=== PATIENT | female | born 1925 | race Caucasian/White ===

== ENCOUNTER 2016-08-10 16:39 | Emergency (ER) | payer MEDICARE ==
[2016-08-10 17:02] LABS: BASOPHILS 0.3 % (0.0-2.0); EOSINOPHILS 1.7 % (0.0-6.0); EOSINOPHILS# 0.2 X 10^3uL (0.0-0.4); HEMATOCRIT 47.2 % (36.0-48.0); HEMOGLOBIN 15.9 g/dL (12.0-16.0); LYMPHOCYTES 6.2 % (20.0-40.0); LYMPHOCYTES# 0.6 X 10^3uL (0.8-3.8); MEAN CELL VOLUME 94.8 fL (80.0-100.0); MEAN CORPUS. HGB CONCENTRATION 33.7 g/dL (32.0-36.0); MEAN PLATELET VOLUME 8.7 fL (7.4-10.4); MONOCYTES 3.2 % (2.0-10.0); MONOCYTES# 0.3 X 10^3uL (0.2-1.0); NEUTROPHILS 88.6 % (54.0-75.0); PLATELET COUNT 253 X 10^3uL (130-440); RED BLOOD COUNT 4.98 X 10^6uL (4.20-6.10); RED CELL DISTRIBUTION WIDTH 13.2 % (11.5-14.5); WHITE BLOOD COUNT 10.1 X 10^3uL (3.9-10.7)
[2016-08-10] MEDS ORDERED: ACETAMINOPHEN 325 MG TABLET PO ONE (17:02)
[2016-08-10] MEDS ORDERED: NORMAL SALINE 500 ML IV ONE ×2 (17:02→17:26)
[2016-08-10 17:10] LABS: BLOOD UREA NITROGEN 21 mg/dL (7-17); CALCIUM 9.9 mg/dL (8.4-10.2); CHLORIDE 100 mmol/L (98-107); GLUCOSE 97 mg/dL (70-100); POTASSIUM 4.2 mmol/L (3.5-5.1); SODIUM 134 mmol/L (137-145)
[2016-08-10 17:19] LABS: INFLUENZA A/B INF A & B NEGATIVE
[2016-08-10] MEDS ORDERED: KETOROLAC TROMETHAMINE 30 MG/ML VIAL ONE (17:26)
--- NOTE | 2016-08-10 18:31 | ER PHYSICIAN DOCUMENTATION ---
Physician Documentation [facility] Name:Florencia Fritz Age:89 yrs Sex:Female :1925 Arrival Date:08/10/2016 Time:16:39 Bed3 Private MD:Maxwell Severino ED, Scott Disposition: 08/10/16 18:04 Discharged to Home/Self Care. Impression: Dehydration, Viral Illness, Chronic Neck Pain. - Condition is Fair. - Discharge Instructions: DEHYDRATION (6y-Adult), VIRAL SYNDROME (Adult), BACK AND NECK PAIN, General. - Medical Reconciliation form form. - Follow up: Maxwell Severino MD; When: As needed; Reason: Worsening of condition, Recheck today's complaints, Continuance of care. - Problem is new. - Symptoms have improved. HPI: 08/10 18:05 This 89 yrs old Female presents to ER via EMS with complaints of Neck Problem.sc 18:05 The patient or guardian complains of pain, that is chronic. The symptoms are located sc diffusely. Onset: The symptom(s)/episode began/occurred at an unknown time. and became worse yesterday. Context: weak and nausea and warm x 2 days, decreased po, worsening chronic pain in neck head back and limbs. Associated signs and symptoms: Pertinent positives: vomiting. The patient has experienced similar episodes in the past, chronically. Historical: - Allergies: Cymbalta; Erythromycin; Keflex; Macrobid; Sulfa (Sulfonamide Antibiotics); Tetracycline; Septra; - Home Meds: 1. Lyrica Oral 3 times per day 2. Synthroid Oral once daily 3. phenergan - PMHx: HYPOTHYROIDISM; CRF; DDD; CHRONIC PAIN; GERD; incisional hernia ; - Tetanus: unable to assess. - Ebola Screening: : Patient denies exposure to infectious person. Patient denies travel to an Ebola-affected area in the 21 days before illness onset. . - Immunization history: Flu Vaccine < 1 year. - Social history: Smoking status: Patient states was never smoker of tobacco. Patient/guardian denies using alcohol, marijuana. ROS: 18:06 Eyes: Negative for injury, pain, redness, and discharge. sc ENT: Negative for injury, pain, and discharge. Cardiovascular: Negative for chest pain, palpitations, and edema. Respiratory: Negative for shortness of breath, cough, wheezing, and pleuritic chest pain. Abdomen/GI: Negative for abdominal pain, nausea, vomiting, diarrhea, and constipation. Skin: Negative for injury, rash, and discoloration. 18:06 Neuro: Negative for headache, weakness, numbness, tingling, and seizure. sc 18:06 Constitutional: Positive for body aches, fatigue, chronic pain. 18:06 Neck: Positive for pain at rest. Exam: Head/Face: Normocephalic, atraumatic. ENT: Nares patent. No nasal discharge, no septal abnormalities noted. Tympanic membranes are normal and external auditory canals are clear. Oropharynx with no redness, swelling, or masses, exudates, or evidence of obstruction, uvula midline. Mucous membranes moist. Chest/axilla: Normal chest wall appearance and motion. Nontender with no deformity. No lesions are appreciated. Cardiovascular: Regular rate and rhythm with a normal S1 and S2. No gallops, murmurs, or rubs. Normal PMI, no JVD. No pulse deficits. Respiratory: Lungs have equal breath sounds bilaterally, clear to auscultation and percussion. No rales, rhonchi or wheezes noted. No increased work of breathing, no retractions or nasal flaring. Abdomen/GI: Soft, non-tender, with normal bowel sounds. No distension or tympany. No guarding or rebound. No evidence of tenderness throughout. Skin: Warm, dry with normal turgor. Normal color with no rashes, no lesions, and no evidence of cellulitis. 18:07 Neuro: Awake and alert, GCS 15, oriented to person, place, time, and situation. in Cranial nerves II-XII grossly intact. Motor strength 5/5 in all extremities. Sensory grossly intact. Cerebellar exam normal. Normal gait. 18:07 Constitutional: The patient appears frail, lethargic. 18:07 Neck: External neck: tenderness, that is mild, diffuse neck back head and limbs pain. 18:09 Neuro: Motor: is normal, moves all fours, Sensation: no obvious gross deficits, Gait: sc appropriate for age, Deep tendon reflexes are 1 (trace) + in the right patellar and left patellar, Babinski testing is normal. 18:09 Neck: C-spine: Nexus Criteria: Nexus criteria: no cervical midline tenderness, patient sc is not intoxicated, mental status is normal, no focal/neurologic deficits, and no painful distracting injuries are present, ROM/movement: is normal. 18:09 ENT: TM's: are normal, Nose: is normal. sc 18:10 Neck: C-spine: vertebral tenderness, is not appreciated. in Vital Signs: 16:40 BP 134 / 77; Pulse 114; Temp 99.1; Pulse Ox 94% on R/A; Pain 10/10; st 17:33 Temp 97.7; st 17:49 Pain 8/10; st 18:29 BP 133 / 63; Pulse 86; Resp 20; Temp 98.8; Pulse Ox 96% on R/A; Pain 2/10; lb [place] Coma Score: 18:09 Eye Response: spontaneous(4). Verbal Response: oriented(5). Motor Response: obeys sc commands(6). Total: 15. MDM: 17:04 Patient medically screened. in 18:08 Differential diagnosis: arthritis, cervical strain. Data reviewed: vital signs, nurses sc notes, lab test result(s), and as a result, I will discharge patient, administer IV fluids. Counseling: I had a detailed discussion with the patient and/or guardian regarding: the historical points, exam findings, and any diagnostic results supporting the discharge/admit diagnosis, lab results, the need for outpatient follow up, with the patient's primary care provider, to return to the emergency department if symptoms worsen or persist or if there are any questions or concerns that arise at home. Medication response: The patient's symptoms have improved. 18:08 ED course: Feels back to baseline after ivf.. in 08/10 17:14 Order name: BASIC METABOLIC PANEL EDKS 08/10 17:15 Interpretation: Abnormal: SODIUM 134; BLOOD UREA NITROGEN 21. in / 17:15 Order name: CBC AUTO DIF, MDIF/RMOR IF IND; Complete Time: 17:52 EDKS 08/10 17:52 Interpretation: Normal. in 08/10 17:19 Order name: INFLUENZA A/B; Complete Time: 17:52 EDKS 08/10 17:52 Interpretation: Normal. in Dispensed Medications: 16:54 Drug: NS 0.9% 500 ml; Route: IV; Rate: bolus; Site: right antecubital; st 17:22 Follow up: IV Status: Completed infusion; IV Intake: 500ml st 16:54 Drug: Acetaminophen 975 mg; Route: PO; st 17:33 Follow up: Response: fever comming down. st 17:22 Drug: Toradol 30 mg; Route: IVP; Site: right antecubital; st 17:49 Follow up: Response: Pain is decreased st 17:22 Drug: NS 0.9% 500 ml; Route: IV; Rate: bolus; Site: right antecubital; 17:49 Follow up: IV Status: Completed infusion; IV Intake: 500ml Point of Care Testing: Urine Dip: 17:27 pH: 5.0; ; Specific [place]: 1.025; Ketones: Trace; Glucose: Negative; Protein: st Negative; Leukocytes: Negative; Nitrite: Negative ; Blood: Negative; Bilirubin: Negative ; Urobilinogen: Normal Signatures: Lucy Gonzalez RN RN st Chew, Scott, MD MD sc Bollock, Lynda lb
--- NOTE | 2016-08-10 18:31 | ER NURSING DOCUMENTATION ---
Nurse's Notes [facility] Name:Florencia Fritz Age:89 yrs Sex:Female :1925 Arrival Date:08/10/2016 Time:16:39 Bed3 Private MD:Maxwell Severino Diagnosis:Dehydration;Viral Illness;Chronic Neck Pain Presentation: 08/10 16:40 Presenting complaint: Patient states: pt states she has a headache and feels weak. EMS st states: EMS states that pt has been feeing increasingly bad today. with body aches and some nausea this am that has continued and she has had increased weakness. Transition of care: Home. Care prior to arrival: IV initiated. gauge and site 20 G right AC Glucose check. 101. 16:40 Method Of Arrival: EMS: 410 st 16:46 Acuity: ERIKA 3 st 16:46 Notified ED Physician of Dr. Díaz notified. st Triage Assessment: 16:40 General: Appears uncomfortable, Behavior is cooperative. Pain: Complains of pain in st headache and body ahces and chronich pain in her legs. Pain currently is 10 out of 10 on a pain scale. Quality of pain is described as aching. Neuro: No deficits noted. Cardiovascular: tachy. Respiratory: Airway is patent Respiratory effort is even, unlabored, Respiratory pattern is regular, symmetrical, Reports cough that is non-productive. Respiratory: Breath sounds are clear bilaterally. GI: Reports nausea, vomiting, pt has some nausea normally but this was worst. Derm: Skin temperature is hot. 17:07 Musculoskeletal: pt has significant peripheral neuropathy with pain on any touch. st Historical: - Allergies: Cymbalta; Erythromycin; Keflex; Macrobid; Sulfa (Sulfonamide Antibiotics); Tetracycline; Septra; - Home Meds: 1. Lyrica Oral 3 times per day 2. Synthroid Oral once daily 3. phenergan - PMHx: HYPOTHYROIDISM; CRF; DDD; CHRONIC PAIN; GERD; incisional hernia ; - Tetanus: unable to assess. - Ebola Screening: : Patient denies exposure to infectious person. Patient denies travel to an Ebola-affected area in the 21 days before illness onset. . - Immunization history: Flu Vaccine < 1 year. - Social history: Smoking status: Patient states was never smoker of tobacco. Patient/guardian denies using alcohol, marijuana. Screenin:03 Infectious Disease Risk None. Abuse screen: Denies threats or abuse. Denies injuries st from another. pt feels safe at home. Nutritional screening: No deficits noted. Assessment: 17:50 General: pt states her headache is easing up. . st Vital Signs: 16:40 BP 134 / 77; Pulse 114; Temp 99.1; Pulse Ox 94% on R/A; Pain 10/10; st 17:33 Temp 97.7; st 17:49 Pain 8/10; st 18:29 BP 133 / 63; Pulse 86; Resp 20; Temp 98.8; Pulse Ox 96% on R/A; Pain 2/10; lb [place] Coma Score: 18:09 Eye Response: spontaneous(4). Verbal Response: oriented(5). Motor Response: obeys sc commands(6). Total: 15. ED Course: 16:40 Patient arrived in ED. ds 16:41 Maxwell Severino MD is Private Physician. ds 16:46 Lucy Gonzalez RN is Primary Nurse. st 16:[address] 16:[address] 16:53 Chino Díaz MD is Attending Physician. sc 17:03 Valuables Remains with patient Patient has correct armband on for positive st identification. Bed in low position. Call light in reach. Side rails up X2. Adult w/ patient. Pulse Ox - RN Monitoring Only NIBP On - RN Monitoring Only. 17:22 Assisted to bedside commode. st 17:28 Urine collected. Voided. st 17:37 Lights dimmed. Warm blanket given. st 18:03 Maxwell Severino MD is Referral Physician. sc Administered Medications: 16:54 Drug: NS 0.9% 500 ml; Route: IV; Rate: bolus; Site: right antecubital; st 17:22 Follow up: IV Status: Completed infusion; IV Intake: 500ml st 16:54 Drug: Acetaminophen 975 mg; Route: PO; st 17:33 Follow up: Response: fever comming down. st 17:22 Drug: Toradol 30 mg; Route: IVP; Site: right antecubital; st 17:49 Follow up: Response: Pain is decreased st 17:22 Drug: NS 0.9% 500 ml; Route: IV; Rate: bolus; Site: right antecubital; st 17:49 Follow up: IV Status: Completed infusion; IV Intake: 500ml st Point of Care Testing: Urine Dip: 17:27 pH: 5.0; ; Specific [place]: 1.025; Ketones: Trace; Glucose: Negative; Protein: st Negative; Leukocytes: Negative; Nitrite: Negative ; Blood: Negative; Bilirubin: Negative ; Urobilinogen: Normal Intake: 17:22 IV: 500ml; Total: 500ml. st 17:49 IV: 500ml; Total: 1000ml. st 18:29 IV: 1000ml (NS); Total: 2000ml. lb Output: 18:29 Urine: 200ml (Voided); Total: 200ml. lb Outcome: 18:04 Discharge ordered by . dc 18:29 Discharged to home via wheelchair, with family. lb 18:29 Condition: stable 18:29 Discharge Assessment: Patient awake, alert and oriented x 3. No cognitive and/or functional deficits noted. Patient verbalized understanding of disposition instructions. 18:29 Discharge instructions given to family, Instructed on discharge instructions, follow up and referral plans. 18:29 IV D/Oneil 18:30 Patient left the ED. 08/11 09:18 Discharge F/U Call: Spoke with: patient. Overall Care on a scale of 1-[address] being the best care, you rate our care as: Other comments: pt states she is very sick today and is having troubles getting to the bathroom. pt has her daughter coming over. pt was assured that if she needed us we were here. Signatures: Lucy Gonzalez RN RN st Srot, Deidra, Chino Vogel MD MD sc Bollock, Lynda
== END 2016-08-10 18:31 | disposition home or self-care (01) ==
LOC: ER 16:39
DX: E86.0 Dehydration (principal); B34.9 Viral infection, unspecified; M54.2 Cervicalgia; G89.29 Other chronic pain; R53.83 Other fatigue; Z79.899 Other long term (current) drug therapy; Z74.3 Need for continuous supervision
CPT/HCPCS: 80048; 85025; 87449; 96361; 96374; 99284; A0425; A0429; J1885; J7040